=== PATIENT | female | born 1940 | race Caucasian/White ===

== ENCOUNTER 2022-01-24 15:49 | Observation (INO) ==
[2022-01-24] MEDS ORDERED: *HR* Labetalol 20 MG/4 ML SYRINGE IVP ONE ×2 (16:52→18:19)
[2022-01-24] MEDS: niCARdipine 20 MG/200 ML MLS IVC SCH ×2 (19:51→23:49)
[2022-01-24 20:03] LABS: Basophils # 0.1 K/mcL (0.0-0.2); Basophils % 0.8 %; Eosinophils # 0.3 K/mcL (0.0-0.6); Eosinophils % 3.1 %; Hematocrit 38.5 % (35.3-44.9); Hemoglobin 12.6 g/dL (11.5-15.4); Immature Granulocytes % 0.5 % (0-4); Lymphocytes # 1.4 K/mcL (0.6-4.6); Lymphocytes % 15.3 %; Mean Corpuscular HGB Conc 32.7 g/dL (31.6-35.5); Mean Corpuscular Hemoglobin 31.9 pg (28.0-33.3); Mean Corpuscular Volume 97.5 fL (83.0-100.0); Mean Platelet Volume 10.9 fL (9.4-12.4); Monocytes # 0.8 K/mcL (0.0-1.3); Neutrophils # 6.5 K/mcL (1.6-8.9); Nucleated Red Blood Cells 0.3 /100 WBC (0); Platelet Count 173 K/mcL (140-400); Red Blood Count 3.95 M/mcL (3.82-4.97); Segmented Neutrophils % 71.3 %; White Blood Count 9.1 K/mcL (4.3-11.1)
[2022-01-24 20:24] LABS: Calcium 10.4 mg/dL (8.6-10.3); Potassium 3.7 mEq/L (3.5-5.1)
[2022-01-24] MEDS ORDERED: Naloxone 0.4 MG/ML INJ IVP PRN (23:24)
[2022-01-24] MEDS ORDERED: Ondansetron 4 MG/2 ML VIAL IVP PRN (23:24)
[2022-01-24] MEDS ORDERED: Acetaminophen 325 MG TABLET PO PRN (23:24)
[2022-01-24] MEDS ORDERED: *HR* HYDROcodone/Acet 5/325 mg TABLET PO PRN (23:24)
[2022-01-24] MEDS ORDERED: Melatonin 3 MG TABLET PO PRN (23:24)
[2022-01-24] MEDS ORDERED: *HR* Promethazine 25 MG/ML VIAL IM PRN (23:24)
[2022-01-24 23:51] VITALS: O2SAT 97
[2022-01-25] MEDS: niCARdipine 20 MG/200 ML MLS IVC SCH ×2 (03:41→08:00)
[2022-01-25 04:56] LABS: Basophils # 0.1 K/mcL (0.0-0.2); Basophils % 0.5 %; Eosinophils # 0.1 K/mcL (0.0-0.6); Eosinophils % 0.8 %; Hematocrit 39.2 % (35.3-44.9); Hemoglobin 13.1 g/dL (11.5-15.4); Immature Granulocytes % 0.6 % (0-4); Lymphocytes # 1.2 K/mcL (0.6-4.6); Lymphocytes % 12.3 %; Mean Corpuscular HGB Conc 33.4 g/dL (31.6-35.5); Mean Corpuscular Hemoglobin 32.2 pg (28.0-33.3); Mean Corpuscular Volume 96.3 fL (83.0-100.0); Mean Platelet Volume 11.1 fL (9.4-12.4); Monocytes # 0.6 K/mcL (0.0-1.3); Monocytes % 6.5 %; Neutrophils # 7.8 K/mcL (1.6-8.9); Platelet Count 173 K/mcL (140-400); Red Blood Count 4.07 M/mcL (3.82-4.97); Segmented Neutrophils % 79.3 %; White Blood Count 9.8 K/mcL (4.3-11.1)
[2022-01-25 05:04] LABS: Prothrombin Time 11.2 Seconds (9.4-12.1)
[2022-01-25 05:17] LABS: Calcium 10.8 mg/dL (8.6-10.3); Chol/HDL Ratio 3.7 (0-4.9); Magnesium 1.9 mg/dL (1.6-2.6); Phosphorous 2.4 mg/dL (2.7-4.5); Potassium 4.1 mEq/L (3.5-5.1)
[2022-01-25] MEDS ORDERED: carvediloL 6.25 MG TABLET PO SCH ×2 (08:00→09:15)
[2022-01-25] MEDS ORDERED: Spironolactone 12.5 MG TABLET PO SCH (09:00)
[2022-01-25] MEDS ORDERED: Magnesium Oxide 400 MG TABLET PO SCH (09:00)
[2022-01-25] MEDS: Famotidine 20 MG TABLET PO SCH ×2 (09:51→15:34)
[2022-01-25] MEDS: carvediloL 25 MG TABLET PO SCH ×2 (09:53→15:34)
[2022-01-25 11:34] VITALS: BP 129/71; PULSE 81; TEMP 97.6
[2022-01-26] MEDS ORDERED: Famotidine 20 MG TABLET PO SCH (06:30)
== END 2022-01-25 17:05 | disposition home or self-care (01) ==
LOC: EMEROOARM 15:49 → 3NENU 15:49 → SUATTDRO 23:50 → 3NENU 01-25 01:13
PROVIDERS: ADMIT Internal Medicine; ATTEND Hospitalist